=== PATIENT | female | born 1955 ===

== ENCOUNTER 2020-07-21 09:20 | Outpatient (CLI) | payer OTHER | END 2020-07-21 13:43 | disposition home or self-care (01) | LOC: TOM 09:20 | PROVIDERS: ATTEND General Practice | DX: R91.1 Solitary pulmonary nodule (principal) ==

== ENCOUNTER 2021-02-03 12:59 | Outpatient (CLI) | payer OTHER | END 2021-02-03 13:05 | disposition home or self-care (01) | LOC: TOM 12:59 | PROVIDERS: ATTEND Internal Medicine Critical Care Medicine | DX: R91.1 Solitary pulmonary nodule (principal) ==

== ENCOUNTER 2022-02-18 10:02 | Outpatient (CLI) | payer OTHER | END 2022-02-18 10:30 | disposition home or self-care (01) | LOC: TOM 10:02 | PROVIDERS: ATTEND Internal Medicine Critical Care Medicine | DX: R91.1 Solitary pulmonary nodule (principal) ==

== ENCOUNTER 2023-05-09 09:43 | Outpatient (CLI) | payer OTHER | END 2023-05-09 09:57 | disposition home or self-care (01) | LOC: MAMO-SONO 09:43 | DX: N64.9 Disorder of breast, unspecified (principal); J84.10 Pulmonary fibrosis, unspecified; Z12.31 Encounter for screening mammogram for malignant neoplasm of breast ==